=== PATIENT | female | born 1940 | race African-American/Black ===

== ENCOUNTER 2017-03-13 15:40 | Emergency (ER) | payer OTHER ==
[2017-03-13 15:52] VITALS: BP 142/75; PULSE 87; TEMP 99.4; BMI 22.8
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
== END 2017-03-13 19:19 | disposition home or self-care (01) ==
LOC: JERFT 15:40
DX: S09.8XXA Other specified injuries of head, initial encounter (principal); G44.89 Other headache syndrome; V48.6XXA Car passenger injured in noncollision transport accident in traffic accident, initial encounter; Y92.488 Other paved roadways as the place of occurrence of the external cause; Y93.89 Activity, other specified; Y99.8 Other external cause status; J44.9 Chronic obstructive pulmonary disease, unspecified; E78.00 Pure hypercholesterolemia, unspecified; Z21 Asymptomatic human immunodeficiency virus [HIV] infection status; I12.0 Hypertensive chronic kidney disease with stage 5 chronic kidney disease or end stage renal disease; N18.6 End stage renal disease; N17.8 Other acute kidney failure; Z99.2 Dependence on renal dialysis
CPT/HCPCS: 70450-TC; 72125-TC; 99281-25

== ENCOUNTER 2017-03-29 20:02 | Emergency (ER) | payer OTHER ==
--- NOTE | 2017-03-29 21:25 | PDOC ---
History of Present Illness - General History Source: Patient Exam Limitations: No Limitations - History of Present Illness Initial Comments: 03/29/17 22:26 The patient is a 76-year-old female, with a significant pmhx of anemia, COPD, HIV (viral load count is undetectable) and ESRD (on HD MWF) who presents to the ED with elevated BP levels today. Pt was dialysed today and towards the end of her session was noted to have high BP levels. Pt did finish dialysis. She is unsure if she took her BP medication this morning (she is not required to take BP medication at night). On exam, patient reports that she is cold and shivering. She was recently prescribed a course of antibiotics by Dr. Abdi for cold symptoms and was told to stop taking them because it was the wrong medication. She is also complaining of upper back pain and right-sided neck pain. The patient denies any fever, nausea, vomiting, diarrhea, or abdominal pain. She denies any shortness of breath or chest pain. <Elizabeth Dewitt - Last Filed: 03/30/17 00:19> <Erasmo Yao - Last Filed: 03/30/17 00:43> - General Stated Complaint: ELEVATED BP Time Seen by Provider: 03/29/17 21:23 Past History <Elizabeth Dewitt - Last Filed: 03/30/17 00:19> - Past Medical History Anemia: No Asthma: Yes Cancer: No Cardiac Disorders: Yes CVA: No COPD: Yes CHF: No Dementia: No Diabetes: No Dialysis: Yes (M,W,F) GI Disorders: Yes (pancreatitis) Disorders: Yes HTN: Yes Hypercholesterolemia: Yes HIV: Yes (AIDS) Liver Disease: No Psychiatric Problems: Yes Seizures: No Thyroid Disease: No - Surgical History Abdominal Surgery: Yes Appendectomy: No Cardiac Surgery: No Cholecystectomy: Yes Lung Surgery: No Neurologic Surgery: No Orthopedic Surgery: No - Immunization History Td Vaccination: Yes Immunization Up to Date: Yes - Psycho/Social/Smoking Cessation Hx Anxiety: Yes Suicidal Ideation: No Smoking Status: No Smoking History: Never smoked Years of Tobacco Use: 0 Have you smoked in the past 12 months: Yes Number of Cigarettes Smoked Daily: 3 If you are a former smoker, when did you quit?: 2015 Cigars Per Day: 0 'Breaking Loose' booklet given: 11/10/15 Hx Alcohol Use: No Drug/Substance Use Hx: No Substance Use Type: None Hx Substance Use Treatment: No <Maximilian,Boris - Last Filed: 03/30/17 00:43> - Past Medical History Allergies/Adverse Reactions: Allergies Allergy/AdvReac Type Severity Reaction Status Date / Time No Known Drug Allergies Allergy Verified 03/29/17 21:34 Home Medications: Ambulatory Orders Quetiapine Fumarate [Seroquel -] 50 mg PO HS 11/18/14 Guaifenesin Dm [Mucinex Dm -] 1 tab PO BID #14 tab.er.12h 09/02/16 Nifedipine [Procardia Xl] 60 mg PO BID #60 tab.er.24 09/20/16 Atorvastatin Ca [Lipitor] 10 mg PO HS #30 tablet 10/18/16 Bisacodyl [Bisacodyl -] 5 mg PO DAILY #30 tablet. 12/13/16 Loratadine [Claritin -] 10 mg PO DAILY #30 tablet 02/02/17 Cephalexin Monohydrate [Keflex -] 250 mg PO Q12H #14 capsule 02/03/17 Prednisone [Deltasone -] 10 mg PO ASDIR #14 tab 02/14/17 Budesonide [Pulmicort Flexhaler] 2 puff IH BID #1 aer.pow.ba 03/13/17 Esomeprazole Magnesium 40 mg PO BID #60 capsule. 03/13/17 Esomeprazole Magnesium [Nexium 24Hr] 40 mg PO BID #60 capsule. 03/13/17 Cefuroxime Axetil [Ceftin] 250 mg PO BID #14 ml 03/17/17 Dronabinol [Marinol] 2.5 mg PO BID PRN #60 cap MDD 2 03/17/17 Fluconazole 100 mg PO DAILY #10 tablet 03/17/17 Abacavir/Dolutegravir/Lamivudi [Triumeq Tablet] 1 each PO DAILY #30 tablet 03/22 Albuterol Sulfate Inhaler - [Ventolin HFA Inhaler -] 2 inh PO Q6H PRN #1 inhaler 03/22/17 Review of Systems - Review of Systems Able to Perform ROS?: Yes Comments:: 03/29/17 22:26 CONSTITUTIONAL: +Chills, shivering. No fever, no fatigue EYES: No visual changes ENT: +Right-sided neck pain. No ear pain, no sore throat CARDIOVASCULAR: No chest pain, no palpitations RESPIRATORY: No cough, no SOB GI: No abdominal pain, no nausea, no vomiting, no constipation, no diarrhea GENITOURINARY: No dysuria, no frequency, no hematuria MUSKULOSKELETAL: +Upper back pain. No joint pain. SKIN: No rash NEURO: No headache <Elizabeth Dewitt - Last Filed: 03/30/17 00:19> *Physical Exam - Vital Signs Last Vital Signs Temp Pulse Resp BP Pulse Ox 98.2 F 64 18 220/110 97 03/29/17 20:07 03/29/17 20:07 03/29/17 20:07 03/29/17 21:41 03/29/17 20:07 <Elizabeth Dewitt - Last Filed: 03/30/17 00:19> - Physical Exam Comments: 03/30/17 00:37 EXAMINATION CONSTITUTIONAL: Awake and alert, cachectic; in no apparent distress HEAD: Normocephalic; atraumatic EYES: PERRL; EOM intact; no scleral icterus; no photophobia; ENMT: External appears normal; + extremely poor dentition; no oral thrush; NECK: Supple; + right trapazeal ttp; no cervical lymphadenopathy CARD: Normal S1, S2; no murmurs, rubs, or gallops RESP: Normal chest excursion with respiration; breath sounds clear and equal bilaterally; no wheezes, rhonchi, or rales ABD: Soft, non-distended; non-tender; no palpable organomegaly, no palpable hernias EXT: Normal ROM in all four extremities; non-tender to palpation; distal pulses intact; + AV fistula to the left upper extremity SKIN: Warm, dry, no petechia NEURO: Cranial nerves II through XII are grossly intact; motor is 5/54; gait is stable; <Erasmo Yao - Last Filed: 03/30/17 00:43> ED Treatment Course - LABORATORY CBC & Chemistry Diagram: 03/29/17 22:04 03/29/17 22:04 <Elizabeth Dewitt - Last Filed: 03/30/17 00:19> - LABORATORY CBC & Chemistry Diagram: 03/29/17 22:04 03/29/17 22:04 <Erasmo Yao - Last Filed: 03/30/17 00:43> Medical Decision Making - Medical Decision Making 03/30/17 00:38 Patient is a 76-year-old female with history of end-stage renal disease on hemodialysis, HIV (CD4 count of 1200 with an undetectable viral load), hyperlipidemia, hypertension presents to the ER for elevated blood pressure noted upon completion of her hemodialysis session. In the ER, patient is awake and alert, afebrile, initially noted to be hypertensive without evidence of end organ damage. Serial neurological evaluations reveal no focal deficits; lungs are noted to be clear; there is no evidence of thrush. CBC/CMP are within normal limit. Chest x-ray reveals new atelectatic changes to the left base only. Urinalysis reveals 14 WBCs per high-power field. Review of patient's records indicates that she was prescribed Ceftin by Dr. Abdi of ID as well as Diflucan several days prior to arrival. Patient was then informed of the interaction between Plavix and Diflucan and advised to discontinue Diflucan. However, patient discontinued all but her antiretroviral medications as a result of confusion. In the ER, patient received hydralazine-25 mg by mouth with resolution of her hypertension. I've advised her to restart all medications including Ceftin and follow-up with ID as necessary. Patient expressed understanding. <Erasmo Yao - Last Filed: 03/30/17 00:43> *DC/Admit/Observation/Transfer - Attestations Scribe Attestion: 03/29/17 22:28 Documentation prepared by Elizabeth Dewitt, acting as medical staff credentialing coordinator for Erasmo Yao MD. <Elizabeth Dewitt - Last Filed: 03/30/17 00:19> - Attestations Physician Attestion: 03/30/17 00:37 The documentation was prepared by the scribe under my direct supervision. I have reviewed the documentation which correctly represents the findings, medical decision-making and critical action taken by me. <Erasmo Yao - Last Filed: 03/30/17 00:43> Diagnosis at time of Disposition: HIV (human immunodeficiency virus infection), ESRD (end stage renal disease) Hypertension Qualifiers: Hypertension type: unspecified Qualified Code(s): I10 - Essential (primary) hypertension Acute bronchitis Qualifiers: Bronchitis organism: unspecified organism Qualified Code(s): J20.9 - Acute bronchitis, unspecified - Discharge Dispostion Disposition: HOME Condition at time of disposition: Stable - Referrals Referrals: Gavin Abdi MD [Staff Physician] - - Patient Instructions Printed Discharge Instructions: DI for High Blood Pressure
[2017-03-29 21:33] VITALS: BMI 22.3
[2017-03-29] MEDS ORDERED: hydrALAZINE HCL 25 MG TABLET (FP) PO ONE (22:07)
[2017-03-29 22:09] LABS: BASOPHIL 0.6 % (0-2.0); EOSINOPHIL 2.7 % (0-4.5); MCH 31.9 pg (25.7-33.7); MCHC 32.5 g/dl (32.0-36.0); NEUTROPHILS 64.7 % (42.8-82.8); PLATELET COUNT 220 K/MM3 (134-434); WHITE BLOOD COUNT 13.2 K/mm3 (4.0-10.0)
[2017-03-29 22:25] LABS: INR 0.92 (0.82-1.09); PROTHROMBIN TIME (PATIENT) 10.1 SEC (9.98-11.88)
[2017-03-29 22:35] LABS: ALBUMIN 3.7 g/dl (3.4-5.0); ALK PHOS 83 U/L (45-117); ANION GAP 7 (8-16); BILIRUBIN,TOTAL 0.5 mg/dL (0.2-1.0); CO2 31 mmol/L (21-32); CREATININE 2.3 mg/dL (0.55-1.02); GLUCOSE,RANDOM 81 mg/dL (74-106); SGOT/AST 16 U/L (15-37); SGPT/ALT 18 U/L (12-78); TOT PROT 7.2 g/dl (6.4-8.2)
[2017-03-29] MEDS ORDERED: hydrALAZINE HCL 25 MG TABLET (FP) ONE (22:41)
[2017-03-29 23:13] LABS: URINE APPEARANCE CLEAR; URINE BILIRUBIN NEGATIVE (NEGATIVE); URINE BLOOD 1+ (NEGATIVE); URINE COLOR STRAW; URINE GLUCOSE (UA) NEGATIVE (NEGATIVE); URINE KETONE NEGATIVE (NEGATIVE); URINE NITRITE NEGATIVE (NEGATIVE); URINE UROBILINOGEN NEGATIVE mg/dL (0.2-1.0)
[2017-03-29 23:16] LABS: URINE LEUK ESTERASE 2+ (NEGATIVE); URINE PROTEIN 1+ (NEGATIVE)
[2017-03-29 23:21] LABS: URINE BACTERIA RARE /hpf (NONE SEEN); URINE RBC 1 /hpf (0-3); URINE WBC 14 /hpf (3-5)
[2017-03-30] MEDS ORDERED: ACETAMINOPHEN 325 MG TABLET (FP) PO ONE
[2017-03-30] MEDS ORDERED: ACETAMINOPHEN 325 MG TABLET (FP) ONE (00:09)
[2017-03-30 01:27] VITALS: BP 162/80; PULSE 83; TEMP 98
== END 2017-03-30 01:27 | disposition home or self-care (01) ==
LOC: JER 20:02
DX: I10 Essential (primary) hypertension (principal); I12.0 Hypertensive chronic kidney disease with stage 5 chronic kidney disease or end stage renal disease; N18.6 End stage renal disease; Z99.2 Dependence on renal dialysis; Z72.0 Tobacco use; J44.9 Chronic obstructive pulmonary disease, unspecified; E78.00 Pure hypercholesterolemia, unspecified; B20 Human immunodeficiency virus [HIV] disease
CPT/HCPCS: 36415; 71020-TC; 80053; 81003; 81015; 85025; 85610; 87040; 87086; 99283-25

== ENCOUNTER 2017-08-25 18:20 | Emergency (ER) | payer OTHER ==
[2017-08-25 18:28] VITALS: BMI 22.8
--- NOTE | 2017-08-25 18:34 | PDOC ---
Attending Attestation - Resident Resident Name: Daniel Rich - ED Attending Attestation I have performed the following: I have examined & evaluated the patient, The case was reviewed & discussed with the resident, I agree w/resident's findings & plan, Exceptions are as noted - HPI HPI: 08/25/17 18:32 Palpitations into second hour of dialysis - Physicial Exam PE: 08/25/17 18:33 VSS NAD - Medical Decision Making 08/26/17 01:[address] Rich Assessment and Plan
[2017-08-25 19:21] LABS: BASO # 0.1 #; BASO % 0.9 % (0-2.0); EOS # 0.5 #; EOS % 4.1 % (0-4.5); LYMPH # 2.8; MCH 34.3 pg (25.7-33.7); MCHC 33.8 g/dl (32.0-36.0); MEAN CELL VOLUME 101.5 fl (80-96); MEAN PLT VOLUME 7.4 fl (7.5-11.1); MONO # 1.2 #; PLATELET COUNT 298 K/MM3 (134-434); RDW 16.3 % (11.6-15.6); WHITE BLOOD COUNT 11.6 K/mm3 (4.0-10.0)
[2017-08-25 19:37] LABS: INR 0.93 (0.82-1.09); PROTHROMBIN TIME (PATIENT) 10.5 SEC (9.98-11.88)
--- NOTE | 2017-08-25 19:37 | PDOC ---
History of Present Illness - General Chief Complaint: Palpitations Stated Complaint: PALPITATIONS Time Seen by Provider: 08/25/17 18:29 History Source: Patient Exam Limitations: No Limitations - History of Present Illness Initial Comments: 08/25/17 19:31 Patient is a 77F with history of COPD/asthma, HIV (Viral load undetectable, normal CD4 count), and ESRD here today complaining of palpitations, dizziness, and lightheadedness during dialysis. She states that she went to [facility] Monday with similar complaint and told that she had too much fluid taken off during dialysis. She had the same amount of fluid taken off today (2L) that she did on Monday. She is very concerned that something is wrong. She says that she had a moment of chest pain during the palpitations but has no chest pain now. Denies nausea, vomiting, fevers, chills, shortness of breath. Past History - Past Medical History Allergies/Adverse Reactions: Allergies Allergy/AdvReac Type Severity Reaction Status Date / Time No Known Drug Allergies Allergy Verified 08/25/17 18:28 Home Medications: Ambulatory Orders Quetiapine Fumarate [Seroquel -] 50 mg PO HS 11/18/14 Guaifenesin Dm [Mucinex Dm -] 1 tab PO BID #14 tab.er.12h 09/02/16 Nifedipine [Procardia Xl] 60 mg PO BID #60 tab.er.24 09/20/16 Atorvastatin Ca [Lipitor] 10 mg PO HS #30 tablet 10/18/16 Budesonide [Pulmicort Flexhaler] 2 puff IH BID #1 aer.pow.ba 03/13/17 Esomeprazole Magnesium [Nexium 24Hr] 40 mg PO BID #60 capsule.dr 03/13/17 Albuterol Sulfate Inhaler - [Ventolin HFA Inhaler -] 2 inh PO Q6H PRN #1 inhaler 03/22/17 Abacavir/Dolutegravir/Lamivudi [Triumeq Tablet] 1 each PO DAILY #30 tablet 05/19 Dronabinol [Marinol] 2.5 mg PO BID PRN #60 cap MDD 2 08/04/17 Anemia: No Asthma: Yes Cancer: No Cardiac Disorders: Yes CVA: No COPD: Yes CHF: No Dementia: No Diabetes: No Dialysis: Yes (M,W,F) GI Disorders: Yes (pancreatitis) Disorders: Yes (ESRD dialysis m-w,f) HTN: Yes Hypercholesterolemia: Yes Liver Disease: No Psychiatric Problems: Yes Seizures: No Thyroid Disease: No - Surgical History Abdominal Surgery: Yes Appendectomy: No Cardiac Surgery: No Cholecystectomy: Yes Lung Surgery: No Neurologic Surgery: No Orthopedic Surgery: No - Immunization History Td Vaccination: Yes Immunization Up to Date: Yes - Suicide/Smoking/Psychosocial Hx Smoking Status: No Smoking History: Unknown if ever smoked Years of Tobacco Use: 0 Have you smoked in the past 12 months: No Number of Cigarettes Smoked Daily: 3 If you are a former smoker, when did you quit?: 2014 Cigars Per Day: 0 Information on smoking cessation initiated: No 'Breaking Loose' booklet given: 11/10/15 Hx Alcohol Use: No Drug/Substance Use Hx: No Substance Use Type: None Hx Substance Use Treatment: No Review of Systems - Review of Systems Comments:: 08/25/17 19:37 GENERAL/CONSTITUTIONAL: No fever or chills. HEAD, EYES, EARS, NOSE AND THROAT: No change in vision. No sore throat. CARDIOVASCULAR: Positive for chest pain. Negative for shortness of breath RESPIRATORY: No cough, wheezing, or hemoptysis. GASTROINTESTINAL: No nausea, vomiting, diarrhea or constipation. GENITOURINARY: No dysuria, frequency, or change in urination. MUSCULOSKELETAL: No joint or muscle swelling or pain. No neck or back pain. SKIN: No rash NEUROLOGIC: No headache, loss of consciousness, or change in strength/ sensation. ENDOCRINE: No increased thirst. No abnormal weight change HEMATOLOGIC/LYMPHATIC: No anemia, easy bleeding, or history of blood clots. *Physical Exam - Vital Signs Last Vital Signs Temp Pulse Resp BP Pulse Ox 98.1 F 105 H 18 157/87 100 08/25/17 18:24 08/25/17 18:24 08/25/17 18:24 08/25/17 18:24 08/25/17 18:24 - Physical Exam Comments: 08/25/17 19:41 GENERAL: Awake, alert, and fully oriented, in no acute distress HEAD: No signs of trauma, normocephalic, atraumatic EYES: PERRLA, EOMI, sclera icteric ENT: Auricles normal inspection, hearing grossly normal, nares patent, oropharynx clear without exudates. Dry mucosa NECK: Normal ROM, supple, no lymphadenopathy, JVD, or masses LUNGS: No distress, speaks full sentences, clear to auscultation bilaterally HEART: Regular rate and rhythm, normal S1 and S2, no murmurs, rubs or gallops, peripheral pulses normal and equal bilaterally. ABDOMEN: Soft, nontender, normoactive bowel sounds. No guarding, no rebound. No masses EXTREMITIES: Normal inspection, Normal range of motion, no edema. No clubbing or cyanosis. NEUROLOGICAL: Cranial nerves II through XII grossly intact. Normal speech, no focal sensorimotor deficits SKIN: Warm, Dry, normal turgor, no rashes or lesions noted. ED Treatment Course - LABORATORY CBC & Chemistry Diagram: 08/25/17 18:55 08/25/17 20:57 - ADDITIONAL ORDERS Additional order review: Laboratory Results 08/25/17 18:55 Sodium Cancelled Potassium Cancelled Chloride Cancelled Carbon Dioxide Cancelled Anion Gap Cancelled BUN Cancelled Creatinine Cancelled Creat Clearance w eGFR Cancelled Random Glucose Cancelled Calcium Cancelled Magnesium Cancelled Total Bilirubin Cancelled AST Cancelled ALT Cancelled Alkaline Phosphatase Cancelled Creatine Kinase Cancelled Troponin I Cancelled Total Protein Cancelled Albumin Cancelled - RADIOLOGY Radiology Studies Ordered: Category Date Time Status CHEST X-RAY PORTABLE* [RAD] Stat Radiology 08/25/17 18:44 Taken Medical Decision Making - Medical Decision Making 08/25/17 19:42 77F with history of HTN, HIV, ESRD on MWF dialysis. Vital signs notable for tachycardia in triage, hr 97 during exam. Patient is anxious, and is wondering what is wrong with her. Suspect pre-syncope due to too much fluid taken off. Will evaluate with ekg, cbc, cmp, mag, trop, cxr. 08/25/17 21:28 EKG shows sinus tachycardia, rate 104. No st elevation/depressions. No IL, QRS, or QTc abnormalities. No IL depression. No t-wave abnormalities. CXR shows no acute cardiopulmonary process. 08/25/17 22:26 Patient reports that she was diagnosed with an UTI at [facility]. Patient has antibiotics from the pharmacy. 08/25/17 23:06 Laboratory Tests 08/25/17 08/25/17 18:55 20:57 WBC 11.6 H Hgb 10.7 Hct 31.8 L Plt Count 298 D Potassium 3.8 Creatinine 3.3 H D CBC shows small leukocytosis. K normal. Cr at or lower baseline. Will discharge with instructions to take the antibiotics she already has. *DC/Admit/Observation/Transfer Diagnosis at time of Disposition: Palpitations - Discharge Dispostion Disposition: HOME Condition at time of disposition: Good Admit: No - Referrals - Patient Instructions Printed Discharge Instructions: DI for Palpitations Additional Instructions: Please return if you have any new, worsening or concerning symptoms. Please take the antibiotics you already have as prescribed. - Post Discharge Activity
[2017-08-25 22:07] LABS: TROPONIN I 0.02 ng/ml (0.00-0.05)
[2017-08-25 22:11] LABS: ALBUMIN 3.1 g/dl (3.4-5.0); ANION GAP 8 (8-16); BILIRUBIN,TOTAL 0.3 mg/dL (0.2-1.0); CALCIUM 8.5 mg/dL (8.5-10.1); CO2 28 mmol/L (21-32); CREATININE 3.3 mg/dL (0.55-1.02); GLUCOSE,RANDOM 129 mg/dL (74-106); SGOT/AST 11 U/L (15-37); SGPT/ALT 16 U/L (12-78); TOT PROT 6.6 g/dl (6.4-8.2)
[2017-08-25 22:12] LABS: ALK PHOS 85 U/L (45-117)
[2017-08-25 23:33] VITALS: BP 148/86; PULSE 99; TEMP 98.2
--- NOTE | 2017-08-26 11:03 | EKG ---
Test Reason : Blood Pressure : / mmHG Vent. Rate : 104 BPM Atrial Rate : 104 BPM P-R Int : 190 ms QRS Dur : 088 ms QT Int : 364 ms P-R-T Axes : 029 021 066 degrees QTc Int : 478 ms SINUS TACHYCARDIA OTHERWISE NORMAL ECG WHEN COMPARED WITH ECG OF 12-MAR-2016 00:40, PREMATURE SUPRAVENTRICULAR COMPLEXES ARE NO LONGER PRESENT Confirmed by KAYLIN STERN MD ([id number]) on 08/26/2017 11:03:18 AM Referred By: Confirmed By:KAYLIN STERN MD
== END 2017-08-25 23:44 | disposition home or self-care (01) ==
LOC: JER 18:20
DX: I12.0 Hypertensive chronic kidney disease with stage 5 chronic kidney disease or end stage renal disease (principal); N18.6 End stage renal disease; N17.8 Other acute kidney failure; Z99.2 Dependence on renal dialysis; E78.00 Pure hypercholesterolemia, unspecified; J44.9 Chronic obstructive pulmonary disease, unspecified; J45.909 Unspecified asthma, uncomplicated; Z21 Asymptomatic human immunodeficiency virus [HIV] infection status
CPT/HCPCS: 36415; 71010-TC; 80053; 82550; 84484; 85025; 85610; 93005; 93010; 99283-25

== ENCOUNTER 2017-09-18 19:02 | Emergency (ER) | payer OTHER ==
--- NOTE | 2017-09-18 20:45 | PDOC ---
History of Present Illness <Ngozi Sanchez - Last Filed: 09/19/17 00:56> - General History Source: Patient Exam Limitations: No Limitations - History of Present Illness Initial Comments: 09/19/17 00:36 Patient is a 77 year old female with a significant past medical history of COPD/ asthma, HIV (Viral load undetectable, normal CD4 count), and ESRD who was brought here by EMS to the ED with complaints of heart palpitations. Patient reports being sent here by dialysis due to increased heart rate and palpitations. Patient states she receives her dialysis every weeks on monday and monday afternoons. She reports experiencing slight fever but is unsure if it is related to her palpitations. Patient was in the ED last month for palpitations and was discharged August 25. Denies Sob. Denies chills, nausea, vomiting. Denies contact with sick individuals, out of state traveling. Denies any other symptoms. Allergies: None Social history: No smoking. No alcohol. No alcohol. Surgical history: None PMD: Dr. Segura Milk Route Deliverer: Dr. Farmer <Jose Reid - Last Filed: 09/19/17 01:35> - General Chief Complaint: SIRS, Suspected/Possible Stated Complaint: TACHYCARDIA Time Seen by Provider: 09/18/17 20:25 Past History - Past Medical History Anemia: No Asthma: Yes Cancer: No Cardiac Disorders: Yes CVA: No COPD: Yes CHF: No Dementia: No Diabetes: No Dialysis: Yes (M,W,F) GI Disorders: Yes (pancreatitis) Disorders: Yes (ESRD dialysis m-w,f) HTN: Yes Hypercholesterolemia: Yes Liver Disease: No Psychiatric Problems: Yes Seizures: No Thyroid Disease: No - Surgical History Abdominal Surgery: Yes Appendectomy: No Cardiac Surgery: No Cholecystectomy: Yes Lung Surgery: No Neurologic Surgery: No Orthopedic Surgery: No - Immunization History Td Vaccination: Yes Immunization Up to Date: Yes - Suicide/Smoking/Psychosocial Hx Smoking Status: No Smoking History: Unknown if ever smoked Years of Tobacco Use: 0 Have you smoked in the past 12 months: No Number of Cigarettes Smoked Daily: 3 If you are a former smoker, when did you quit?: 2015 Cigars Per Day: 0 'Breaking Loose' booklet given: 11/10/15 Hx Alcohol Use: No Drug/Substance Use Hx: No Substance Use Type: None Hx Substance Use Treatment: No <Ngozi Sanchez - Last Filed: 09/19/17 00:56> <Jose Reid - Last Filed: 09/19/17 01:35> - Past Medical History Allergies/Adverse Reactions: Allergies Allergy/AdvReac Type Severity Reaction Status Date / Time No Known Drug Allergies Allergy Verified 09/18/17 20:46 Home Medications: Ambulatory Orders Quetiapine Fumarate [Seroquel -] 50 mg PO HS 11/18/14 Atorvastatin Ca [Lipitor] 10 mg PO HS #30 tablet 10/18/16 Esomeprazole Magnesium [Nexium 24Hr] 40 mg PO BID #60 capsule. 03/13/17 Abacavir/Dolutegravir/Lamivudi [Triumeq Tablet] 1 each PO DAILY #30 tablet 05/19 Cinacalcet HCl [Sensipar] 30 mg PO DAILY 09/18/17 Fluconazole 50 mg PO DAILY 09/18/17 Loratadine 10 mg PO DAILY 09/18/17 Losartan Potassium [Cozaar -] 50 mg PO DAILY 09/18/17 Naloxegol Oxalate [Movantik] 12.5 mg PO DAILY 09/18/17 Oxycodone HCl/Acetaminophen [Endocet 10-325 mg Tablet] 1 each PO QID PRN Sevelamer Carbonate [Renvela] 800 mg NR DAILY 09/18/17 Zolpidem Tartrate 10 mg PO HS 09/18/17 Review of Systems - Review of Systems Able to Perform ROS?: Yes Comments:: 09/19/17 00:36 CONSTITUTIONAL: Absent: fever, chills, diaphoresis, generalized weakness, malaise, loss of appetite HEENT: Absent: rhinorrhea, nasal congestion, throat pain, throat swelling, difficulty swallowing, mouth swelling, ear pain, eye pain, visual Changes CARDIOVASCULAR: +Palpitations Absent: chest pain, syncope, palpitations, irregular heart rate, lightheadedness , peripheral edema RESPIRATORY: Absent: cough, shortness of breath, dyspnea with exertion, orthopnea, wheezing, stridor, hemoptysis GASTROINTESTINAL: Absent: abdominal pain, abdominal distension, nausea, vomiting, diarrhea, constipation, melena, hematochezia GENITOURINARY: Absent: dysuria, frequency, urgency, hesitancy, hematuria, flank pain, genital pain MUSCULOSKELETAL: Absent: myalgia, arthralgia, joint swelling SKIN: Absent: rash, itching, pallor HEMATOLOGIC/IMMUNOLOGIC: Absent: easy bleeding, easy bruising, lymphadenopathy, frequent infections ENDOCRINE: Absent: unexplained weight gain, unexplained weight loss, heat intolerance, cold intolerance NEUROLOGIC: Absent: headache, focal weakness or paresthesias, dizziness, unsteady gait, seizure, mental status changes, bladder or bowel incontinence PSYCHIATRIC: Absent: anxiety, depression, suicidal or homicidal ideation, hallucinations. All Other Systems: Reviewed and Negative <JeanetteJose mason - Last Filed: 09/19/17 01:35> *Physical Exam - Vital Signs Last Vital Signs Temp Pulse Resp BP Pulse Ox 101.2 F H 112 H 24 163/90 96 09/18/17 20:00 09/18/17 20:00 09/18/17 20:00 09/18/17 20:00 09/18/17 20:00 - Physical Exam Comments: 09/19/17 00:37 GENERAL: +Thin Well developed, well nourished. Awake and alert. No acute distress. HEENT: Normocephalic, atraumatic. PERRLA, EOMI. No conjunctival pallor. Sclera are non- icteric. Moist mucous membranes. Oropharynx is clear. NECK: Supple. Full ROM. No JVD. Carotid pulses 2+ and symmetric, without bruits. No thyromegaly. No lymphadenopathy. CARDIOVASCULAR: +Tachycardic Regular rate and rhythm. No murmurs, rubs, or gallops. Distal pulses are 2+ and symmetric. PULMONARY: No evidence of respiratory distress. Lungs clear to auscultation bilaterally. No wheezing, rales or rhonchi. ABDOMINAL: Soft. Non-tender. Non-distended. No rebound or guarding. No organomegaly. Normoactive bowel sounds. MUSCULOSKELETAL Normal range of motion at all joints. No bony deformities or tenderness. No CVA tenderness. EXTREMITIES: +AV shunt on left arm. +bruits and thrill. No cyanosis. No clubbing. No edema. No calf tenderness. SKIN: Warm and dry. Normal capillary refill. No rashes. No jaundice. NEUROLOGICAL: Alert, awake, appropriate. Cranial nerves 2-12 intact. No deficits to light touch and temperature in face, upper extremities and lower extremities. No motor deficits in the in face, upper extremities and lower extremities. Normoreflexic in the upper and lower extremities. Normal speech. Toes are down-going bilaterally. Gait is normal without ataxia. PSYCHIATRIC: Cooperative. Good eye contact. Appropriate mood and affect. <Jose Reid - Last Filed: 09/19/17 01:35> ED Treatment Course - LABORATORY CBC & Chemistry Diagram: 09/18/17 21:18 09/18/17 21:18 <DanielNgozi Sneha - Last Filed: 09/19/17 00:56> - LABORATORY CBC & Chemistry Diagram: 09/18/17 21:18 09/18/17 21:18 - ADDITIONAL ORDERS Additional order review: Laboratory Results 09/18/17 09/18/17 09/18/17 21:25 21:18 21:18 PT with INR INR PTT (Actin FS) VBG pH POC VBG pCO2 POC VBG pO2 Mixed VBG HCO3 Sodium Potassium Chloride Carbon Dioxide Anion Gap BUN Creatinine Creat Clearance w eGFR Random Glucose Lactic Acid 2.1 H Calcium Total Bilirubin AST ALT Alkaline Phosphatase Creatine Kinase Troponin I Total Protein Albumin Urine Color Ltyellow Urine Appearance Clear Urine pH 8.0 Ur Specific [place] 1.009 Urine Protein 2+ H Urine Glucose (UA) Negative Urine Ketones Negative Urine Blood Negative Urine Nitrite Negative Urine Bilirubin Negative Urine Urobilinogen Negative Ur Leukocyte Esterase 1+ H Urine WBC (Auto) 13 Urine RBC (Auto) 1 Ur Epithelial Cells Rare Blood Type B POSITIVE Antibody Screen Negative 09/18/17 09/18/17 09/18/17 21:18 21:18 21:18 PT with INR 9.80 L INR 0.87 PTT (Actin FS) 27.4 VBG pH 7.44 H POC VBG pCO2 43.9 POC VBG pO2 34.3 Mixed VBG HCO3 29.9 H Sodium 138 Potassium 4.0 Chloride 101 Carbon Dioxide 30 Anion Gap 7 L BUN 24 H Creatinine 3.3 H Creat Clearance w eGFR 13.59 Random Glucose 114 H Lactic Acid Calcium 8.7 Total Bilirubin 0.4 D AST 19 ALT 22 Alkaline Phosphatase 100 Creatine Kinase 51 Troponin I 0.02 Total Protein 7.3 Albumin 3.6 Urine Color Urine Appearance Urine pH Ur Specific [place] Urine Protein Urine Glucose (UA) Urine Ketones Urine Blood Urine Nitrite Urine Bilirubin Urine Urobilinogen Ur Leukocyte Esterase Urine WBC (Auto) Urine RBC (Auto) Ur Epithelial Cells Blood Type Antibody Screen 09/18/17 21:18 Influenza Types A,B Antigen (GRIS) - Final Nasopharyngeal Swab - Final 09/18/17 21:18 RBC 3.39 L MCV 100.1 H MCHC 32.8 RDW 17.4 H MPV 7.8 Neutrophils % 79.3 D Lymphocytes % 7.1 L D Monocytes % 10.9 H Eosinophils % 2.1 Basophils % 0.6 - Medications Given in the ED: ED Medications Discontinued Medications Generic Name Dose Route Start Last Admin Trade Name Trudi PRN Reason Stop Dose Admin Acetaminophen 650 mg 09/18/17 20:46 09/18/17 21:34 Tylenol - PO 09/18/17 20:47 650 mg ONCE ONE Administration Oseltamivir Phosphate 30 mg 09/18/17 22:26 09/18/17 23:06 Tamiflu Oral Suspension - PO 09/18/17 22:27 Not Given ONCE STA Oseltamivir Phosphate 30 mg 09/18/17 22:38 09/18/17 23:17 Tamiflu - PO 09/18/17 22:39 30 mg ONCE ONE Administration Quetiapine Fumarate 50 mg 09/18/17 23:09 09/18/17 23:13 Seroquel - PO 09/18/17 23:10 50 mg ONCE ONE Administration <Jose Reid - Last Filed: 09/19/17 01:35> *DC/Admit/Observation/Transfer <Ngozi Sanchez - Last Filed: 09/19/17 00:56> - Attestations Scribe Attestion: 09/19/17 00:37 Documentation prepared by Jose Reid, acting as medical office assistant for Ngozi Sanchez MD/DO. <Jose Reid - Last Filed: 09/19/17 01:35> - Discharge Dispostion Condition at time of disposition: Guarded - Referrals Referrals: Vidal Farmer MD [Primary Care Provider] - - Patient Instructions - Post Discharge Activity
[2017-09-18] MEDS ORDERED: ACETAMINOPHEN 325 MG TABLET (FP) PO ONE (20:46)
[2017-09-18] MEDS ORDERED: ACETAMINOPHEN 325 MG TABLET (FP) ONE (21:31)
[2017-09-18 21:35] LABS: BASO % 0.6 % (0-2.0); EOS % 2.1 % (0-4.5); HEMATOCRIT 33.9 % (32.4-45.2); HEMOGLOBIN 11.1 GM/dL (10.7-15.3); LYMPH % 7.1 % (8-40); MCH 32.9 pg (25.7-33.7); MCHC 32.8 g/dl (32.0-36.0); MEAN CELL VOLUME 100.1 fl (80-96); MEAN PLT VOLUME 7.8 fl (7.5-11.1); MONO % 10.9 % (3.8-10.2); NEUT % 79.3 % (42.8-82.8); PLATELET COUNT 201 K/MM3 (134-434); RBC 3.39 M/mm3 (3.60-5.2); RDW 17.4 % (11.6-15.6); WHITE BLOOD COUNT 11.8 K/mm3 (4.0-10.0)
[2017-09-18 21:36] LABS: VENOUS PC02 43.9 mmHg (38-52); VENOUS PH 7.44 (7.32-7.42); VENOUS PO2 34.3 mmHg (28-48)
[2017-09-18 21:37] LABS: URINE APPEARANCE CLEAR; URINE BILIRUBIN NEGATIVE (NEGATIVE); URINE BLOOD NEGATIVE (NEGATIVE); URINE COLOR LTYELLOW; URINE GLUCOSE (UA) NEGATIVE (NEGATIVE); URINE KETONE NEGATIVE (NEGATIVE); URINE NITRITE NEGATIVE (NEGATIVE); URINE UROBILINOGEN NEGATIVE mg/dL (0.2-1.0)
[2017-09-18 21:39] VITALS: BMI 23.4
[2017-09-18 21:43] LABS: URINE LEUK ESTERASE 1+ (NEGATIVE); URINE PROTEIN 2+ (NEGATIVE)
[2017-09-18 21:48] LABS: EPI CELLS RARE /HPF (FEW)
[2017-09-18 21:49] LABS: INR 0.87 (0.82-1.09); PROTHROMBIN TIME (PATIENT) 9.8 SEC (9.98-11.88)
[2017-09-18 21:52] LABS: ACTIVATED PTT 27.4 SECONDS (26.9-34.4)
[2017-09-18 22:11] LABS: ALBUMIN 3.6 g/dl (3.4-5.0); ANION GAP 7 (8-16); BLOOD UREA NITROGEN 24 mg/dL (7-18); CALCIUM 8.7 mg/dL (8.5-10.1); CHLORIDE 101 mmol/L (98-107); CO2 30 mmol/L (21-32); CREATININE 3.3 mg/dL (0.55-1.02); GLUCOSE,RANDOM 114 mg/dL (74-106); SGOT/AST 19 U/L (15-37); SGPT/ALT 22 U/L (12-78); SODIUM 138 mmol/L (136-145)
[2017-09-18 22:15] LABS: ALK PHOS 100 U/L (45-117); BILIRUBIN,TOTAL 0.4 mg/dL (0.2-1.0); TOT PROT 7.3 g/dl (6.4-8.2)
[2017-09-18] MEDS ORDERED: OSELTAMIVIR PHOSPHATE 6 MG/1 ML - 60ML BOTTLE PO STA (22:26)
[2017-09-18] MEDS ORDERED: OSELTAMIVIR PHOSPHATE 30 MG CAPSULE PO ONE (22:38)
[2017-09-18] MEDS ORDERED: QUEtiapine FUMARATE 50 MG TABLET PO ONE (23:09)
[2017-09-18] MEDS ORDERED: QUEtiapine FUMARATE 25 MG TABLET (FP) ONE (23:10)
--- NOTE | 2017-09-19 06:38 | PDOC ---
*Physical Exam - Vital Signs Last Vital Signs Temp Pulse Resp BP Pulse Ox 98.5 F 89 20 141/76 97 09/19/17 03:30 09/19/17 03:30 09/19/17 03:30 09/19/17 03:30 09/19/17 03:30 - Physical Exam Comments: 09/19/17 06:35 Pt signed out pending transportation in the am. She is feeling well, no new complaints. Requesting a percocet for her chronic pain (is on percocet at home) . Will give one percocet and dc home with transportation. To f/u with her ID doctor as discussed/planned. Vascular Pulses: Femoral (R): 4+, Femoral (L): 4+, Carotid (R): 4+, Carotid (L) : 4+, Dorsalis-Pedis (R): 4+, Doralis-Pedis (L): 4+ ED Treatment Course - LABORATORY CBC & Chemistry Diagram: 09/18/17 21:18 09/18/17 21:18 - ADDITIONAL ORDERS Additional order review: Laboratory Results 09/18/17 09/18/17 09/18/17 21:25 21:18 21:18 PT with INR INR PTT (Actin FS) VBG pH POC VBG pCO2 POC VBG pO2 Mixed VBG HCO3 Sodium Potassium Chloride Carbon Dioxide Anion Gap BUN Creatinine Creat Clearance w eGFR Random Glucose Lactic Acid 2.1 H Calcium Total Bilirubin AST ALT Alkaline Phosphatase Creatine Kinase Troponin I Total Protein Albumin Urine Color Ltyellow Urine Appearance Clear Urine pH 8.0 Ur Specific [place] 1.009 Urine Protein 2+ H Urine Glucose (UA) Negative Urine Ketones Negative Urine Blood Negative Urine Nitrite Negative Urine Bilirubin Negative Urine Urobilinogen Negative Ur Leukocyte Esterase 1+ H Urine WBC (Auto) 13 Urine RBC (Auto) 1 Ur Epithelial Cells Rare Blood Type B POSITIVE Antibody Screen Negative 09/18/17 09/18/17 09/18/17 21:18 21:18 21:18 PT with INR 9.80 L INR 0.87 PTT (Actin FS) 27.4 VBG pH 7.44 H POC VBG pCO2 43.9 POC VBG pO2 34.3 Mixed VBG HCO3 29.9 H Sodium 138 Potassium 4.0 Chloride 101 Carbon Dioxide 30 Anion Gap 7 L BUN 24 H Creatinine 3.3 H Creat Clearance w eGFR 13.59 Random Glucose 114 H Lactic Acid Calcium 8.7 Total Bilirubin 0.4 D AST 19 ALT 22 Alkaline Phosphatase 100 Creatine Kinase 51 Troponin I 0.02 Total Protein 7.3 Albumin 3.6 Urine Color Urine Appearance Urine pH Ur Specific [place] Urine Protein Urine Glucose (UA) Urine Ketones Urine Blood Urine Nitrite Urine Bilirubin Urine Urobilinogen Ur Leukocyte Esterase Urine WBC (Auto) Urine RBC (Auto) Ur Epithelial Cells Blood Type Antibody Screen 09/18/17 21:18 Influenza Types A,B Antigen (GRIS) - Final Nasopharyngeal Swab - Final 09/18/17 21:18 RBC 3.39 L MCV 100.1 H MCHC 32.8 RDW 17.4 H MPV 7.8 Neutrophils % 79.3 D Lymphocytes % 7.1 L D Monocytes % 10.9 H Eosinophils % 2.1 Basophils % 0.6 - Medications Given in the ED: ED Medications Discontinued Medications Generic Name Dose Route Start Last Admin Trade Name Freq PRN Reason Stop Dose Admin Acetaminophen 650 mg 09/18/17 20:46 09/18/17 21:34 Tylenol - PO 09/18/17 20:47 650 mg ONCE ONE Administration Oseltamivir Phosphate 30 mg 09/18/17 22:26 09/18/17 23:06 Tamiflu Oral Suspension - PO 09/18/17 22:27 Not Given ONCE STA Oseltamivir Phosphate 30 mg 09/18/17 22:38 09/18/17 23:17 Tamiflu - PO 09/18/17 22:39 30 mg ONCE ONE Administration Oxycodone/Acetaminophen 1 combo 09/19/17 03:11 09/19/17 03:29 Percocet 5/325 - PO 09/19/17 03:12 1 combo ONCE ONE Administration Quetiapine Fumarate 50 mg 09/18/17 23:09 09/18/17 23:13 Seroquel - PO 09/18/17 23:10 50 mg ONCE ONE Administration Medical Decision Making - Medical Decision Making 09/19/17 06:36 Pt received on signout at 2am from Dr. Sanchez, pending discharge this am via transportation. Pt slept comfortably overnight, in the am requesting dose of percocet (is on percocet at home). As pt is flu A positive, will dc with Rx tamiflu and is instructed to f/u with her ID doctor as planned. Advised to return to the ER should she feel worse. *DC/Admit/Observation/Transfer Diagnosis at time of Disposition: Influenza A - Discharge Dispostion Disposition: HOME Condition at time of disposition: Guarded Admit: No - Prescriptions Prescriptions: Oseltamivir Phosphate [Tamiflu] 75 mg PO DAILY 7 Days #7 capsule - Referrals Referrals: Vidal Farmer MD [Primary Care Provider] - - Patient Instructions Printed Discharge Instructions: Influenza Additional Instructions: Please follow up with your infectious disease doctor as planned. Take tamiflu for influenza as this test was positive in the ER today. Return if your symptoms worsen. - Post Discharge Activity
[2017-09-19 07:03] VITALS: TEMP 98.9
[2017-09-19 07:59] VITALS: BP 147/82; PULSE 102
--- NOTE | 2017-09-20 08:07 | EKG ---
Test Reason : Blood Pressure : / mmHG Vent. Rate : 126 BPM Atrial Rate : 126 BPM P-R Int : 172 ms QRS Dur : 088 ms QT Int : 406 ms P-R-T Axes : 000 038 068 degrees QTc Int : 588 ms POOR DATA QUALITY, INTERPRETATION MAY BE ADVERSELY AFFECTED SINUS TACHYCARDIA NONSPECIFIC T WAVE ABNORMALITY ABNORMAL ECG WHEN COMPARED WITH ECG OF 25-AUG-2017 18:26, T WAVE INVERSION NOW EVIDENT IN INFERIOR LEADS NONSPECIFIC T WAVE ABNORMALITY NOW EVIDENT IN ANTEROLATERAL LEADS Confirmed by SOL SILVER, MARYANN ([id number]) on 09/20/2017 8:06:41 AM Referred By: Confirmed By:MARYANN HORTON MD
== END 2017-09-19 08:02 | disposition home or self-care (01) ==
LOC: JER 19:02
DX: J09.X2 Influenza due to identified novel influenza A virus with other respiratory manifestations (principal); J45.909 Unspecified asthma, uncomplicated; J44.9 Chronic obstructive pulmonary disease, unspecified; I12.0 Hypertensive chronic kidney disease with stage 5 chronic kidney disease or end stage renal disease; N18.6 End stage renal disease; N17.8 Other acute kidney failure; Z99.2 Dependence on renal dialysis; K85.90 Acute pancreatitis without necrosis or infection, unspecified; E78.00 Pure hypercholesterolemia, unspecified; Z21 Asymptomatic human immunodeficiency virus [HIV] infection status
CPT/HCPCS: 36415; 71045-TC; 80053; 81003; 81015; 82550; 82803; 83605; 84484; 85025; 85610; 85730; 86850; 86900; 86901; 87040; 87086; 87804; 93005; 93010; 99282-25; G9019